=== PATIENT | female | born 1965 | race Caucasian/White ===

== ENCOUNTER → 2019-01-15 | Outpatient (CLI) | payer BC ==
[~2019-01-15] MED LIST: CIPR500 PO; HYDCHL25 PO; HYDR1TAB94 PO; IBUP800 PO; LEVSOD50 PO; OMEP20ER PO; PHENA200 PO; SUMA20NI; TOPI25; TRAZ50 PO; TRAZODONE; ZOLP5
[2019-01-15 12:08] LABS: BASOPHILS ABSOLUTE AUTO 0.02 K/mm3 (0.00-0.23); BASOPHILS PERCENT AUTO 0 % (0-2); EOSINOPHILS ABSOLUTE AUTO 0.11 K/mm3 (0.00-0.68); EOSINOPHILS PERCENT AUTO 1 % (0-6); Hemoglobin 14.2 g/dL (11.5-16.0); IMMATURE GRAN ABSOLUTE AUTO 0.04 K/mm3 (0.00-0.10); IMMATURE GRAN PERCENT AUTO 1 % (0-1); LYMPHOCYTES ABSOLUTE AUTO 2.18 K/mm3 (0.84-5.20); LYMPHOCYTES PERCENT AUTO 25 % (21-46); MONOCYTES ABSOLUTE AUTO 0.61 K/mm3 (0.16-1.47); MONOCYTES PERCENT AUTO 7 % (4-13); Mean Corpuscular HGB 31.4 pg (26.0-34.0); Mean Corpuscular HGB Conc 33.8 g/dL (31.5-36.5); Mean Corpuscular Volume 93 fL (80-100); Mean Platelet Volume 10.2 fL (9.1-12.4); NEUTROPHILS ABSOLUTE AUTO 5.76 K/mm3 (1.96-9.15); NEUTROPHILS PERCENT AUTO 66 % (41-73); Platelet Count 264 K/mm3 (150-400); RDW Coefficient Variation 12.6 % (11.7-14.2); Red Blood Cell Count 4.52 M/mm3 (3.80-5.20); White Blood Cell Count 8.72 K/mm3 (4.00-11.30)
[2019-01-15 12:10] LABS: Bun/Creatinine Ratio 24.4 (12.0-20.0); Calcium, Blood 9.1 mg/dL (8.5-10.1); Creatinine, Blood 1.23 mg/dL (0.40-1.00); Potassium, Blood 4.1 mmol/L (3.5-5.5)
== END | disposition home or self-care (01) ==
LOC: LAB EV 12:02 → LAB SHORT 12:02
PROVIDERS: Physician Assistant
DX: G43.111 Migraine with aura, intractable, with status migrainosus (principal)
CPT/HCPCS: 80048; 85025

== ENCOUNTER 2020-11-04 06:21 | Day surgery (SDC) | payer BC ==
[~2020-11-04] VITALS: Ht 165.1 cm; Wt 95.3 kg
[~2020-11-04 06:21] MED LIST changes: +EMGALITY120 MG/1 M SC; +EUTHYROX50 MCG PO; -LEVSOD50 PO
[2020-11-04] MEDS ORDERED: FENO54 PO (07:01)
[2020-11-04] MEDS ORDERED: TRAZ50 PO (07:02)
--- NOTE | 2020-11-04 07:45 | NUR ---
11/04/20 0745 Rosa Smith BUPIVACAINE 0.5% 30ML MIXED WITH EPI 0.15MG TO MAKE CONCENTRATION OF BUPIVACAINE 0.5% 1:200,[address] HECK PER ORDER
--- NOTE | 2020-11-04 10:10 | NUR ---
11/04/20 1010 Mary Francis REPORT TAKEN FROM [facility].NVP AT 1003. PT IN THE RECLINER AT THIS TIME AND STATES PAIN IS NOW IMPROVED AT 6/10. PT REQUESTED LAST DOSE OF FENTANYL PRIOR TO DISCHARGE. PT STATES SHE DOES NOT HAVE ANY QUESTIONS AT THIS TIME. VSS.
[2021-04-28] MEDS ORDERED: EMGALITY120 MG/1 M SC (08:13)
[2021-04-28] MEDS ORDERED: Norco 5-325 Ta1 EACH PO (08:14)
[2021-04-28] MEDS ORDERED: EUTHYROX50 MCG PO (08:14)
[2021-04-28] MEDS ORDERED: FENO54 PO (08:14)
[2021-04-28] MEDS ORDERED: MONT10T PO (08:14)
[2021-04-28] MEDS ORDERED: PSEUDOEPHEDRINE30 M1 PO (08:15)
[2021-04-28] MEDS ORDERED: IMITREX100 MG PO (08:16)
[2021-04-28] MEDS ORDERED: Ventolin/Prove6.7 GM INH (08:16)
[2021-04-28] MEDS ORDERED: TRAM50 PO (08:16)
== END 2020-11-04 10:23 | disposition home or self-care (01) ==
LOC: ORSCSDS 06:21
PROVIDERS: Podiatrist Foot & Ankle Surgery
PROC: 0SGL04Z Fusion of Left Tarsometatarsal Joint with Internal Fixation Device, Open Approach (ICD-10-PCS; principal; 2020-11-04 07:30)
DX: M12.872 Other specific arthropathies, not elsewhere classified, left ankle and foot (principal); E03.9 Hypothyroidism, unspecified; Z79.899 Other long term (current) drug therapy; E78.5 Hyperlipidemia, unspecified; E66.9 Obesity, unspecified; Z68.34 Body mass index [BMI] 34.0-34.9, adult
CPT/HCPCS: A9270; C1713; C1769; J0171; J1100; J2250; J2405; J2704; J3010; J3370; J7120

== ENCOUNTER 2021-05-05 08:03 | Day surgery (SDC) | payer BC ==
[~2021-05-05] VITALS: Ht 165.1 cm; Wt 96.8 kg
[~2021-05-05 08:03] MED LIST changes: +FENO54 PO; +IMITREX100 MG PO; +MONT10T PO; +Norco 5-325 Ta1 EACH PO; +PSEUDOEPHEDRINE30 M1 PO; +TRAM50 PO; +Ventolin/Prove6.7 GM INH
--- NOTE | 2021-05-05 08:59 | NUR ---
05/05/21 0859 Wisam Fung VANCOMYCIN 1GM STARTED AT 0858
--- NOTE | 2021-05-05 11:54 | NUR ---
05/05/21 1154 JEROD CORREA 2ND ATTEMPT AT TURNING OFF FACE TENT/O2 PRIOR TO DC PACU
--- NOTE | 2021-05-05 12:41 | NUR ---
05/05/21 1241 JEROD CORREA PT URINATED PRIOR TO DISCHARGE
== END 2021-05-05 12:15 | disposition home or self-care (01) ==
LOC: ORSCSDS 08:03
PROVIDERS: Podiatrist Foot & Ankle Surgery
PROC: 0YPB0YZ Removal of Other Device from Left Lower Extremity, Open Approach (ICD-10-PCS; principal; 2021-05-05 09:15)
PROC: 0SGJ04Z Fusion of Left Tarsal Joint with Internal Fixation Device, Open Approach (ICD-10-PCS; principal; 2021-05-05 09:15)
PROC: 0SGJ07Z Fusion of Left Tarsal Joint with Autologous Tissue Substitute, Open Approach (ICD-10-PCS; principal; 2021-05-05 09:15)
DX: S92.902K Unspecified fracture of left foot, subsequent encounter for fracture with nonunion (principal); S92.902G Unspecified fracture of left foot, subsequent encounter for fracture with delayed healing; T84.84XA Pain due to internal orthopedic prosthetic devices, implants and grafts, initial encounter; E07.9 Disorder of thyroid, unspecified; E78.5 Hyperlipidemia, unspecified; I10 Essential (primary) hypertension; E66.9 Obesity, unspecified; Z68.35 Body mass index [BMI] 35.0-35.9, adult; Z79.899 Other long term (current) drug therapy
CPT/HCPCS: C1713; C1769; J0171; J1100; J2250; J2405; J2704; J3010; J3370

== ENCOUNTER 2025-06-10 06:24 | Emergency (ER) | payer BC ==
[~2025-06-10] VITALS: Ht 165.1 cm; Wt 87.5 kg
[2025-06-10] MEDS ORDERED: Morphine Sulfate 4 MG/1 ML Injection IV ONE (06:45)
[2025-06-10] MEDS ORDERED: Morphine Sulfate 4 MG/1 ML Injection IM ONE (06:50)
[2025-06-10] MEDS ORDERED: HYDROmorphone HCl/Pf 1MG SYR IV ONE ×2 (08:35→09:50)
[2025-06-10 11:00] VITALS: BP 134/84
== END 2025-06-10 11:19 | disposition home or self-care (01) ==
LOC: ER 06:24
DX: M71.21 Synovial cyst of popliteal space [Baker], right knee (principal); M17.11 Unilateral primary osteoarthritis, right knee; Z90.710 Acquired absence of both cervix and uterus; Z88.0 Allergy status to penicillin; Z88.5 Allergy status to narcotic agent; Z88.2 Allergy status to sulfonamides; Z88.8 Allergy status to other drugs, medicaments and biological substances; Z79.899 Other long term (current) drug therapy
CPT/HCPCS: 73562-RT; 73700; 96374; 96375; 96376; 99284-25; J1171; J2270